=== PATIENT | male | born 1995 | race Two or more races ===

== ENCOUNTER 2023-06-05 19:28 | Emergency (ER) | payer OTHER ==
[~2023-06-05] VITALS: Ht 172.7 cm; Wt 76.7 kg
[2023-06-05] MEDS ORDERED: TDAP [DIPH/PERTUSSIS/TET] 0.5 ML VIAL IM ONE ×2 (20:00)
[2023-06-05] MEDS ORDERED: LIDOCAINE 1%-EPI 1:100,000 20 ML VIAL ONE (20:04)
[2023-06-05] MEDS ORDERED: CEPH250C PO (20:45)
[2023-06-05] MEDS ORDERED: IBUP-1955 PO (20:45)
[2023-06-05] MEDS ORDERED: CEPHALEXIN MONOHYDRATE 500 MG CAPSULE PO ONE ×2 (20:53→21:00)
[2023-06-05 21:10] VITALS: BP 131/76; TEMP 98.1; O2SAT 99
== END 2023-06-05 21:11 | disposition home or self-care (01) ==
LOC: ER 19:30
DX: S61.211A Laceration without foreign body of left index finger without damage to nail, initial encounter (principal); W26.0XXA Contact with knife, initial encounter; Y93.89 Activity, other specified; Y92.89 Other specified places as the place of occurrence of the external cause; Y99.8 Other external cause status
CPT/HCPCS: 12002; 90471; 90715; 99283; J3490